=== PATIENT | female | born 1970 | race African-American/Black ===

== ENCOUNTER 2020-12-22 15:08 | Emergency (ER) | payer OTHER ==
[2020-12-22 15:35] VITALS: BP 170/112; PULSE 103; TEMP 98.2; BMI 32.0
== END 2020-12-22 18:35 | disposition home or self-care (01) ==
LOC: JERFT 15:08
DX: L30.8 Other specified dermatitis (principal)
CPT/HCPCS: 99281-25

== ENCOUNTER 2021-04-20 15:34 | Emergency (ER) | payer OTHER ==
[2021-04-20 15:43] VITALS: BP 143/93; PULSE 100; TEMP 98; BMI 31.6
[2021-04-20] MEDS ORDERED: IBUPROFEN 600 MG TABLET (FP) PO ONE ×2 (17:29→17:31)
== END 2021-04-20 18:40 | disposition home or self-care (01) ==
LOC: JERFT 15:34
DX: S59.901A Unspecified injury of right elbow, initial encounter (principal); S69.91XA Unspecified injury of right wrist, hand and finger(s), initial encounter; W10.8XXA Fall (on) (from) other stairs and steps, initial encounter
CPT/HCPCS: 73070-TC-RT-FY; 73110-TC-RT-FY; 73130-TC-RT-FY; 99283-25

== ENCOUNTER 2021-04-25 16:35 | Emergency (ER) | payer OTHER ==
[2021-04-25 17:39] VITALS: BP 168/116; PULSE 100; TEMP 98.6; BMI 31.6
== END 2021-04-25 20:41 | disposition home or self-care (01) ==
LOC: JERFT 16:35
DX: M25.521 Pain in right elbow (principal); W10.9XXA Fall (on) (from) unspecified stairs and steps, initial encounter
CPT/HCPCS: 99281-25